=== PATIENT | male | born 1980 | race Caucasian/White ===

== ENCOUNTER 2016-08-10 23:14 | Emergency (ER) | payer OTHER ==
[~2016-08-10] VITALS: Ht 175.3 cm; Wt 62.5 kg
[~2016-08-10 23:14] MED LIST: BACTRIM,SEPT1 TABLET PO; KEFLEX500 MG PO; PAMELOR PO; RITALIN5 MG PO; VICODIN,LORT1 TABLET PO
[2016-08-11 00:14] LABS: MCV 94.3 FL (86-99); MEAN PLAT.VOLUME 10.9 uM^3 (9.0-12.4); PLATELET COUNT 170 K/uL (156-360); RBC DIS.WIDTH-CV 13.1 % (11.8-14.6); RBC DIS.WIDTH-SD 44.1 % (39-53); RED BLOOD COUNT 4.88 M/uL (4.00-5.50); WHITE BLOOD COUNT 9.1 K/uL (4.1-10.2)
[2016-08-11 00:46] LABS: CHLORIDE 102 mEq/L (99-109); POTASSIUM 3.6 mEq/L (3.7-5.4); SODIUM 137 mEq/L (136-147)
[2016-08-11 00:48] LABS: GLUCOSE 115 mg/dL (70-99)
[2016-08-11 00:49] LABS: ANION GAP 11 MEQ/L (2-14)
[2016-08-11 00:51] LABS: SERUM ETHYL ALCOHOL < 10 mg/dL
[2016-08-11 00:52] LABS: GFR ESTIMATE (CALCULATED) > 59 mL/min/
[2016-08-11 00:53] LABS: UREA NITROGEN (BUN) 18 mg/dL (9-23)
[2016-08-11 01:00] VITALS: BP 140/79
== END 2016-08-11 01:01 | disposition home or self-care (01) ==
LOC: EME → EDBD 23:14 → EME 08-11 01:01
PROVIDERS: Emergency Medicine
DX: F33.2 Major depressive disorder, recurrent severe without psychotic features (principal); F41.1 Generalized anxiety disorder; F90.9 Attention-deficit hyperactivity disorder, unspecified type; F17.200 Nicotine dependence, unspecified, uncomplicated
CPT/HCPCS: 80048; 81003; 85027; 90839; 99281; 99283; G0480